=== PATIENT | female | born 1965 | race Caucasian/White ===

== ENCOUNTER 2023-05-04 09:53 | Outpatient (AMB) | payer OTHER, SELFPAY ==
--- NOTE | 2023-05-04 10:08 | MHC.OFFVIS ---
Intake Vital Signs 05/04/23 10:25 Height 5 ft 5 in Weight 262 lb BMI 43.6 BP 129/62 Blood Pressure Location Lt brachial Position Sitting Pulse 86 Pulse Source Pulse Oximeter Pulse Oximetry (%) 97 Oxygen Delivery Method Room Air Intake Visit Reasons: Left Total Knee Replacement Pain/confirmed Intake Note: Pain today 09/15 Collar Sewer Required: No Accompanied by: Self / Same As Patient Allergies erythromycin base [ERYTHROMYCIN BASE] Allergy (Severe, Verified 05/04/23 10:24) ANAPHYLAXIS metronidazole [METRONIDAZOLE] Allergy (Severe, Verified 05/04/23 10:24) ANAPHYLAXIS moxifloxacin [From AVELOX] Allergy (Severe, Verified 05/04/23 10:24) ANAPHYLAXIS Sulfa (Sulfonamide Antibiotics) [SULFA (SULFONAMIDE ANTIBIOTICS)] Allergy (Severe, Verified 05/04/23 10:24) ANAPHYLAXIS tetracycline [TETRACYCLINE] Allergy (Severe, Verified 05/04/23 10:24) ANAPHYLAXIS HPI Left Total Knee Replacement Pain/confirmed HPI Details Patient is a 57 years old female with history of left total knee replacement on 11/[address] Moyer at [facility] presents today for chronic anterior left knee pain. She reports stiffness, tightness and aching in her left anterior knee for over a year. There is no local tenderness medial or lateral joint lines. Patient has been unable to follow up with [facility] for this. Patient reports her post-operative rehabilitation included home rehab and then outpatient physical therapy and believes this went well. Denies any recent trauma, injury or falls. Pain affects her daily functioning, mobility, mood, sleep and quality of life. She rates her pain 4-5/10 on good days and 8-9/10 worst pain, with prolonged standing, especially during recent holiday preparations. Denies any fever, weight loss, burning, lower extremity numbness or tingling, back or groin pain, weakness, bladder or bowel dysfunction, or saddle anesthesia. Location Left anterior knee pain Duration Chronic pain >1 year Characteristics of symptom or complaint Aching, stiffness, tightness Aggravating or associated factors Movements, prolonged standing Relieving factors Sitting, diclofenac cream, Tylenol Treatment Home rehab s/p left TKA, then PT at [facility] Medical History (Updated 05/04/23 @ 22:59 by MONET Castillo) Diabetes mellitus type 2, controlled, without complications Moderate vulvar dysplasia Lichen sclerosus et atrophicus Osteoarthritis of thumbs, bilateral History of cervical cancer Long-term current use of insulin for diabetes mellitus Surgical History History of total left knee replacement (TKR) (Updated 05/04/23 @ 10:58 by Sarah Escobedo) Alcohol intake: current Alcohol intake frequency: holidays/special occasions only Patient Tobacco Use Status: Former Tobacco user Quit Date: 06/16/2019 Tobacco use type: Cigarette Cigarette Packs Per Day: 0.5 Substance Use Type: Caffiene Substance Use Type Other:: 1 cup daily Review of Systems Const All systems reviewed & are unremarkable except as noted in HPI and below Neuro Denies confusion Psych Denies confusion Physical Exam Vital Signs: Last Vital Signs Pulse 86 05/04/23 10:25 BP 129/62 05/04/23 10:25 Pulse Ox 97 05/04/23 10:25 Oxygen Delivery Method Room Air 05/04/23 10:25 BMI result Body Mass Index 43.6 General: Appears afebrile. Alert and oriented. Mood and affect appropriate. Follows and participates in conversation appropriately. Respiratory effort is unlabored. No cough. Able to transition from sit to stand unassisted. Ambulates with bilaterally normal heel strike and toe off. Const General: cooperative, healthy appearing, comfortable, no acute distress, alert and awake; No confusion Nutritional Appearance: obese morbidly obese Orientation/consciousness: No confusion Neuro General: No confusion Extrem General: Yes capillary refill normal, Yes no clubbing, cyanosis or edema and Yes no calf tenderness Left lower extremity: knee (Well healed incision, normal scarring) Details: normal to inspection, tenderness (global anterior knee) Location: not of the medial joint line and not of the lateral joint line and normal ROM; no swelling, no ecchymosis, no crepitus, no deformity and no unusual warmth Results Reviewed Results Reviewed: No imaging reports are available for review today. Assessment & Plan Assessment & Plan (1) Chronic knee pain after total replacement of left knee joint: Code(s): M25.562 - Pain in left knee; G89.29 - Other chronic pain; Z96.652 - Presence of left artificial knee joint (2) Left knee pain: Code(s): M25.562 - Pain in left knee Plan Left knee xray imaging to assess degree of degenerative changes and hardware status. Will consider [facility] [place] Orthopedic evaluation if any concern on imaging prior to any interventional treatments. Discussed treatments for chronic left knee pain s/p TKA in 2019 with femoral nerve Sprint PNS trial, genicular RFA or neuromodulation with Curonix PNS trial as well as DRG stimulation. Informational pamphlets were provided to patient. Tentatively plan for Left Diagnostic Femoral Nerve Block with local and fluoroscopy. Discussed the risks and benefits of the procedure with the patient in detail. All questions were answered. Follow up for xray results and sooner as needed. Orders: Orders XR knee LT 3V 05/04/23 M25.562 - Pain in left knee, Z96.652 - Presence of left artificial knee joint Coding Level of Care Code New Pt Level 4 (77246) Diagnoses Chronic knee pain after total replacement of left knee joint M25.562; G89.29; Z96.652 Left knee pain M25.562
[2023-05-04 10:25] VITALS: BP 129/62; PULSE 86; O2SAT 97; BMI 43.6
== END 2023-05-04 10:44 | disposition home or self-care (01) ==
PROVIDERS: PCP Internal Medicine; Referring Provider Internal Medicine; Visit Provider Nurse Practitioner Family
DX: M25.562 Pain in left knee (principal); G89.29 Other chronic pain; Z96.652 Presence of left artificial knee joint
CPT/HCPCS: 99204

== ENCOUNTER 2023-05-04 09:53 | Outpatient (REF) | payer OTHER, SELFPAY ==
--- NOTE | ~2023-05-04 | XR_ITS ---
EXAMINATION: XR KNEE, LEFT CLINICAL INFORMATION: Pain COMPARISON: None available. TECHNIQUE: Three views of the left knee. FINDINGS: Status post left knee arthroplasty. Orthopedic hardware is grossly intact. Slight enthesopathy at quadriceps tendon insertion site. Joint space alignment are maintained. Trace knee joint effusion. Soft tissues are unremarkable. XR/XR knee LT 3V IMPRESSION: 1. Status post left knee arthroplasty. Orthopedic hardware is grossly intact. 2. Slight enthesopathy at quadriceps tendon insertion site. 3. Trace knee joint effusion.
== END 2023-05-04 09:54 | disposition home or self-care (01) ==
LOC: HO.XRAY 09:53
PROVIDERS: PCP Internal Medicine; Referring Provider Internal Medicine; Visit Provider Nurse Practitioner Family
DX: Z96.652 Presence of left artificial knee joint (principal)
CPT/HCPCS: 73562

== ENCOUNTER 2025-01-12 11:07 | Emergency (ER) | payer OTHER, SELFPAY ==
--- NOTE | ~2025-01-12 | CT_ITS ---
EXAMINATION: CT CERVICAL SPINE WITHOUT CONTRAST CLINICAL INFORMATION: Status post fall. COMPARISON: None available. TECHNIQUE: Contiguous axial images through the cervical spine using 3 mm collimation with bone and soft tissue algorithm. Sagittal and coronal reformatted images acquired. DLP: [address] examination was performed using dose optimization techniques as appropriate, variously including the following: *Automated exposure control *Adjustment of mA and/or kV according to patient size (this includes techniques or standardized protocols for targeted exams where dose is matched to indication/reason for exam; i.e. extremities or head) *Use of iterative reconstruction technique FINDINGS: Craniocervical junction is intact with normal alignment between the occipital condyles and lateral masses of C1. Marginal osteophyte formation and subchondral cyst formation, decreased intervertebral disc height at C4-5 and C5-6 level. Anterior marginal osteophyte formation C3-4. Multilevel facet joint hypertrophy. Reduced right facets at C2-3. There is 1 mm anterolisthesis C3-4 likely degenerative. C1 is intact. C2 is intact. C3 is intact. C4 is intact. C5 is intact. Left subarticular posterior marginal osteophyte formation producing the AP diameter of the central spinal canal. C6 is intact. C7 is intact. No prevertebral compartment hematoma. Central spinal canal stenosis on a degenerative basis/multifactorial basis at C5-6, C6-7 and to a lesser extent C4-5. Calcified plaques in the carotic arteries pronounced on the right side. The included tympanic cavities and mastoid cells are aerated. CT/CT cervical spine wo IV con IMPRESSION: Multilevel cervical spondylosis C3 C7 resulting in severe central spinal canal stenosis at C5-6, C6-7 and to a lesser extent C4-5 likely compressing the spinal cord. No acute fracture or trauma-related listhesis. Fleischner guidelines were followed. Electronically signed by: Jarett Minaya MD 01/12/2025 01:49 PM EDT
--- NOTE | ~2025-01-12 | CT_ITS ---
EXAMINATION: CT HEAD AND FACIAL BONES WITHOUT CONTRAST CLINICAL INFORMATION: Fall with head strike, struck face and nose. COMPARISON: None TECHNIQUE: Contiguous axial imaging was performed from the skull base to vertex, as well as the maxillofacial bones/mandible without intravenous administration of contrast. Multiplanar reformatted imaging was constructed from the axial data set. This CT examination was performed using dose optimization techniques as appropriate, variously including the following: *Automated exposure control *Adjustment of mA and/or kV according to patient size (this includes techniques or standardized protocols for targeted exams where dose is matched to indication/reason for exam; i.e. extremities or head) *Use of iterative reconstruction technique CT HEAD: There is no evidence of intracranial hemorrhage or extra-axial fluid collection. There is no mass effect, or edema. No CT evidence of acute territorial infarct. Ventricles, sulci, and cisterns are normal in size and configuration for patient age. No hydrocephalus. No midline shift. Negative hyperdense MCA sign. Negative insular ribbon sign. No significant white matter abnormalities. Normal pituitary. Globes and orbital contents demonstrate bilateral lens replacements. They are otherwise normal. No extracranial soft tissue abnormalities. The calvarium and skull base are intact without fracture. CT MAXILLOFACIAL BONES: The mandible is intact without fracture. The TM joints are normally oriented. No definitive nasal bone fractures. The nasal process, maxilla, orbits, zygomatic arches, pterygoid plates, and sphenoid bone are intact without fracture. No significant nasal septal deviation. Paranasal sinuses are normally pneumatized throughout. No significant paranasal sinus disease. No paranasal sinus fractures. The mastoids and tympanic cavities are normally aerated. Imaged maxillofacial/neck soft tissues appear normal. CT/CT facial bones wo IV con IMPRESSION: 1. No definitive nasal or maxillofacial fractures. The mandible is intact. 2. No intracranial hemorrhage or mass effect. No calvarial fracture. Electronically signed by: Ulysses Khan MD 01/12/2025 01:47 PM EDT
[2025-01-12 11:21] VITALS: BP 132/84; BP 137/77; PULSE 64; PULSE 86; RESP 17; TEMP 36.6; O2SAT 96; BMI 47.9
[2025-01-12 11:25] VITALS: BP 137/77; PULSE 64; RESP 17; TEMP 36.6; O2SAT 96
--- NOTE | 2025-01-12 11:57 | ED.FALL ---
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 She reports losing her balance while walking through the parking lot at work, causing her to fall forward and strike her face on the asphalt. She denies LOC. She is not on anticoagulation. She was unable to stand after the fall due to left knee replacement and thus called EMS who then transported her to the ED. Endorses abrasions to right wrist, nose, and right knee. Denies any preceding symptoms of chest pain, shortness of breath, palpitations. Denies headache, vision changes, dizziness, nausea or vomiting, neck or back pain, numbness/tingling/weakness of the extremities, nosebleed. Related Data Home Medications ?Medication ?Instructions ?Recorded ?Confirmed acetaminophen 650 mg 650 mg PO Q8H PRN pain 05/04/23 tablet,extended release bromfenac 0.07 % eye drops 1 drp ophthalmic (eye) DAILY 05/04/23 (Prolensa) diclofenac sodium 1 % topical gel 1 g topical BID PRN pain 05/04/23 empagliflozin 10 mg tablet 10 mg PO DAILY 05/04/23 (Jardiance) glyburide 5 mg tablet 10 mg PO BID 05/04/23 insulin glargine 100 unit/mL (3 90 - 92 unit subcut DAILY 05/04/23 mL) subcutaneous pen (Lantus Solostar U-100 Insulin) lisinopril 30 mg tablet 30 mg PO DAILY 05/04/23 loteprednol etabonate 0.38 % eye drp ophthalmic (eye) 05/04/23 gel drops (Lotemax SM) magnesium oxide 400 mg (241.3 mg 400 mg PO DAILY 05/04/23 magnesium) tablet moxifloxacin 0.5 % eye drops drp ophthalmic (eye) 05/04/23 tobramycin 0.3 % eye drops drp ophthalmic (eye) 05/04/23 Allergies Allergy/AdvReac Type Severity Reaction Status Date / Time erythromycin base Allergy Severe ANAPHYLAXIS Verified 01/12/25 11:22 (ERYTHROMYCIN BASE) metronidazole (METRONIDAZOLE) Allergy Severe ANAPHYLAXIS Verified 01/12/25 11:22 moxifloxacin (From AVELOX) Allergy Severe ANAPHYLAXIS Verified 01/12/25 11:22 Sulfa (Sulfonamide Allergy Severe ANAPHYLAXIS Verified 01/12/25 11:22 Antibiotics) (SULFA (SULFONAMIDE ANTIBIOTICS)) tetracycline (TETRACYCLINE) Allergy Severe ANAPHYLAXIS Verified 01/12/25 11:22 Review of Systems Review of Systems: Yes all other systems are reviewed and are negative [facility] Past Medical History Attestation statement: The following information was validated with the patient. Source: old records reviewed and nursing notes reviewed Medical History Diabetes mellitus type 2, controlled, without complications Moderate vulvar dysplasia Lichen sclerosus et atrophicus Osteoarthritis of thumbs, bilateral History of cervical cancer Long-term current use of insulin for diabetes mellitus Surgical History History of total left knee replacement (TKR) Social History Social History Alcohol intake: current Alcohol intake frequency: holidays/special occasions only Patient Tobacco Use Status: Former Tobacco user Tobacco use type: Cigarette Cigarette Packs Per Day: 0.5 Substance Use Type: Caffiene Physical Exam Vital Signs: Vital Signs: Last Vital Signs Temp 97.3 F 01/12/25 15:42 Pulse 79 01/12/25 15:42 Resp 14 01/12/25 15:42 BP 140/58 H 01/12/25 15:42 Pulse Ox 96 01/12/25 15:42 O2 Del Method Room Air 01/12/25 15:42 BMI result Body Mass Index 47.9 vitals signs stable General: Well appearing, in no acute distress. Skin: Warm, dry, No rashes or lesions. abrasion on bridge of nose, right wrist and right knee Head: Normocephalic, atraumatic. EENT: Hearing is intact b/l. Conjunctiva clear. Sclera is anicteric. PERRLA. EOM intact. Moist mucous membranes.? No septal hematoma. Neck: FROM. No midline C-spine tenderness Cardiac: Chest wall symmetric. RRR Lungs: Normal respiratory effort without accessory muscle use. CTA bilaterally. Back: No midline spinous or paraspinal tenderness. No step off deformity. Ext: Upper and lower extremities atraumatic, without tenderness, deformity, swelling or erythema Neuro: AOx3. Normal speech.Strength 5/5 intact throughout. No saddle anesthesia. Sensation intact to light touch. Psych: Appropriate mood and affect. Responds appropriately to questions. Course Course Course Narrative: 1508 -- CT head without bleed. CT facial bones without nasal or facial fracture. Mandible is intact. On CT cervical spine, radiologist noted multilevel cervical spondylosis C3 through C7 resulting in severe central spinal canal stenosis at C5/6 and C6/7 and to a lesser extent C4/5, likely compressing the spinal cord. > abrasions to nasal bridge cleansed with saline and iodine thoroughly. Repaired with Steri-Strips. No active bleeding. > I discussed these results with patient. She has no neuro symptoms at all. She is neurovascularly intact to bilateral upper extremities. She has full ROM intact to C-spine. There is no midline spinous tenderness or step-off. I do not have concern for acute spinal cord compression. I did discuss this with my attending Dr. Gaitan who has also evaluated patient at bedside. He agrees that clinically, there is no concern for spinal cord compression. I did advise patient to follow up with her outpatient providers. She verbalizes understanding. Patient has remained stable throughout ED visit today. Discussed worrisome signs and symptoms and when to return to the ED. All questions answered at this time. Patient is agreeable with disposition and stable for discharge. Medications Administered Discontinued Medications Generic Name Dose Route Start Last Admin Trade Name Freq PRN Reason Stop Dose Admin Acetaminophen 975 mg 01/12/25 12:25 01/12/25 12:32 Acetaminophen 325 Mg Tablet PO 01/12/25 12:26 975 mg ONCE ONE Administration Medical Decision Making Medical Decision Making 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 Vital signs stable. She is well-appearing in no acute distress. There is a small abrasion noted to the bridge of her nose. No active bleeding or bleeding from the nares. No septal hematoma or deviation. Dentition intact. Differential diagnosis includes facial contusion, facial fracture, abrasion, laceration, concussion, closed head injury, intracranial bleed, cervical sprain/strain, cervical fracture Plan for imaging, Tylenol and re-evaluation. Differential Diagnosis Differential Diagnoses: The differential diagnosis associated with the presentation includes as above. Admission/Observation not indicated. Independent Interpretation I performed an independent interpretation of an: CT Scan Interpretation: CT head/brain without bleed CT cervical spine without acute fracture CT facial bones without fracture Radiology Impression Discussion of test interpretation with radiology: I have reviewed the radiologist's reading. Radiologist Impression: Procedure(s): CT facial bones wo IV con Accession Number(s): [id number] cc: Jacob Lo III, MD; Juliana Garcia~ Report Number: [id number]: Total DLP = 276.00 mGy-cm EXAMINATION: CT HEAD AND FACIAL BONES WITHOUT CONTRAST CLINICAL INFORMATION: Fall with head strike, struck face and nose. COMPARISON: None TECHNIQUE: Contiguous axial imaging was performed from the skull base to vertex, as well as the maxillofacial bones/mandible without intravenous administration of contrast. Multiplanar reformatted imaging was constructed from the axial data set. This CT examination was performed using dose optimization techniques as appropriate, variously including the following: *Automated exposure control *Adjustment of mA and/or kV according to patient size (this includes techniques or standardized protocols for targeted exams where dose is matched to indication/reason for exam; i.e. extremities or head) *Use of iterative reconstruction technique CT HEAD: There is no evidence of intracranial hemorrhage or extra-axial fluid collection. There is no mass effect, or edema. No CT evidence of acute territorial infarct. Ventricles, sulci, and cisterns are normal in size and configuration for patient age. No hydrocephalus. No midline shift. Negative hyperdense MCA sign. Negative insular ribbon sign. No significant white matter abnormalities. Normal pituitary. Globes and orbital contents demonstrate bilateral lens replacements. They are otherwise normal. No extracranial soft tissue abnormalities. The calvarium and skull base are intact without fracture. CT MAXILLOFACIAL BONES: The mandible is intact without fracture. The TM joints are normally oriented. No definitive nasal bone fractures. The nasal process, maxilla, orbits, zygomatic arches, pterygoid plates, and sphenoid bone are intact without fracture. No significant nasal septal deviation. Paranasal sinuses are normally pneumatized throughout. No significant paranasal sinus disease. No paranasal sinus fractures. The mastoids and tympanic cavities are normally aerated. Imaged maxillofacial/neck soft tissues appear normal. CT/CT facial bones wo IV con IMPRESSION: 1. No definitive nasal or maxillofacial fractures. The mandible is intact. 2. No intracranial hemorrhage or mass effect. No calvarial fracture. Electronically signed by: Ulysses Khan MD 01/12/2025 01:47 PM EDT RP Date of Service: 01/12/25 Procedure(s): CT head/brain wo IV con Accession Number(s): [id number] cc: Jacob Lo III, MD; Juliana Garcia~ Report Number: [id number]: Total DLP = 627.00 mGy-cm EXAMINATION: CT HEAD AND FACIAL BONES WITHOUT CONTRAST CLINICAL INFORMATION: Fall with head strike, struck face and nose. COMPARISON: None TECHNIQUE: Contiguous axial imaging was performed from the skull base to vertex, as well as the maxillofacial bones/mandible without intravenous administration of contrast. Multiplanar reformatted imaging was constructed from the axial data set. This CT examination was performed using dose optimization techniques as appropriate, variously including the following: *Automated exposure control *Adjustment of mA and/or kV according to patient size (this includes techniques or standardized protocols for targeted exams where dose is matched to indication/reason for exam; i.e. extremities or head) *Use of iterative reconstruction technique CT HEAD: There is no evidence of intracranial hemorrhage or extra-axial fluid collection. There is no mass effect, or edema. No CT evidence of acute territorial infarct. Ventricles, sulci, and cisterns are normal in size and configuration for patient age. No hydrocephalus. No midline shift. Negative hyperdense MCA sign. Negative insular ribbon sign. No significant white matter abnormalities. Normal pituitary. Globes and orbital contents demonstrate bilateral lens replacements. They are otherwise normal. No extracranial soft tissue abnormalities. The calvarium and skull base are intact without fracture. CT MAXILLOFACIAL BONES: The mandible is intact without fracture. The TM joints are normally oriented. No definitive nasal bone fractures. The nasal process, maxilla, orbits, zygomatic arches, pterygoid plates, and sphenoid bone are intact without fracture. No significant nasal septal deviation. Paranasal sinuses are normally pneumatized throughout. No significant paranasal sinus disease. No paranasal sinus fractures. The mastoids and tympanic cavities are normally aerated. Imaged maxillofacial/neck soft tissues appear normal. CT/CT head/brain wo IV con IMPRESSION: 1. No definitive nasal or maxillofacial fractures. The mandible is intact. 2. No intracranial hemorrhage or mass effect. No calvarial fracture. Electronically signed by: Ulysses Khan MD 01/12/2025 01:47 PM EDT RP Date of Service: 01/12/25 Procedure(s): CT cervical spine wo IV con Accession Number(s): [id number] cc: Jacob Lo III, MD; Juliana Garcia~ Report Number: [id number]: Total DLP = 563.00 mGy-cm EXAMINATION: CT CERVICAL SPINE WITHOUT CONTRAST CLINICAL INFORMATION: Status post fall. COMPARISON: None available. TECHNIQUE: Contiguous axial images through the cervical spine using 3 mm collimation with bone and soft tissue algorithm. Sagittal and coronal reformatted images acquired. DLP: [address] examination was performed using dose optimization techniques as appropriate, variously including the following: *Automated exposure control *Adjustment of mA and/or kV according to patient size (this includes techniques or standardized protocols for targeted exams where dose is matched to indication/reason for exam; i.e. extremities or head) *Use of iterative reconstruction technique FINDINGS: Craniocervical junction is intact with normal alignment between the occipital condyles and lateral masses of C1. Marginal osteophyte formation and subchondral cyst formation, decreased intervertebral disc height at C4-5 and C5-6 level. Anterior marginal osteophyte formation C3-4. Multilevel facet joint hypertrophy. Reduced right facets at C2-3. There is 1 mm anterolisthesis C3-4 likely degenerative. C1 is intact. C2 is intact. C3 is intact. C4 is intact. C5 is intact. Left subarticular posterior marginal osteophyte formation producing the AP diameter of the central spinal canal. C6 is intact. C7 is intact. No prevertebral compartment hematoma. Central spinal canal stenosis on a degenerative basis/multifactorial basis at C5-6, C6-7 and to a lesser extent C4-5. Calcified plaques in the carotic arteries pronounced on the right side. The included tympanic cavities and mastoid cells are aerated. CT/CT cervical spine wo IV con IMPRESSION: Multilevel cervical spondylosis C3 C7 resulting in severe central spinal canal stenosis at C5-6, C6-7 and to a lesser extent C4-5 likely compressing the spinal cord. No acute fracture or trauma-related listhesis. Fleischner guidelines were followed. Electronically signed by: Jarett Minaya MD 01/12/2025 01:49 PM EDT Independent Historian Clinical information obtained from an independent historian. History obtained from or confirmed by: EMS External Record Review External record reviewed: Inpatient record Prescription Management I considered prescription management with: Pain Medication Social Determinants Patient?s care significantly limited by Social Determinants of Health including: Other Social Determinant of Health Critical Care Time Critical Care Time Critical Care Time: No Discharge Plan Discharge Clinical Impression: Fall Patient Disposition: Home, Self-Care Instructions: Fall Prevention (ED) Additional Instructions: You were evaluated at our facility following a trip and fall this morning. The CT scan of your head and face does not demonstrate any acute fracture or intracranial bleed. The CT scan of your neck does not demonstrate acute fracture however, as discussed, it does show severe spinal stenosis within the neck. Your exam is reassuring in the ED not have any neurologic deficits. I do encourage you to follow up with your outpatient providers regarding this finding as you may warrant further imaging outpatient. The abrasion to your nose was covered with steri strips - these will fall off on their own, do no pick at these. You may take tylenol/ motrin at home for any pain/ discomfort. Return with any new or worsening symptoms. In the case of an emergency call 911. CT cervical spine wo IV con IMPRESSION: Multilevel cervical spondylosis C3 C7 resulting in severe central spinal canal stenosis at C5-6, C6-7 and to a lesser extent C4-5 likely compressing the spinal cord. No acute fracture or trauma-related listhesis. Prescriptions: No Action tobramycin 0.3 % drops ophthalmic (eye) moxifloxacin 0.5 % drops ophthalmic (eye) diclofenac sodium 1 % gel 1 g topical BID PRN (Reason: pain) insulin glargine [Lantus Solostar U-100 Insulin] 100 unit/mL (3 mL) insulin pen 90 - 92 unit subcut DAILY magnesium oxide 400 mg (241.3 mg magnesium) tablet 400 mg PO DAILY glyburide 5 mg tablet 10 mg PO BID Lotemax SM 0.38 % drops,gel ophthalmic (eye) Prolensa 0.07 % drops 1 drp ophthalmic (eye) DAILY lisinopril 30 mg tablet 30 mg PO DAILY acetaminophen 650 mg tablet extended release 650 mg PO Q8H PRN (Reason: pain) Jardiance 10 mg tablet 10 mg PO DAILY Referrals: Jacob Lo III, MD [Primary Care Provider, Medical] Interventions: ED Discharge Assessment Last Done: 01/12/25 15:42 Discharge Date/Time: 01/12/25 15:43 Print Language: Armenian
--- OUTSIDE RECORDS SUMMARY | 2025-01-12 12:08 | XMS_ITS ---
Author Name [facility] Organization Unknown Care Team Organization Name Specialty Phone Email Start Date End Da te [facility] SIDRA CRUZ Primary Care 04/15/2022 4
--- OUTSIDE RECORDS SUMMARY | 2025-01-12 12:08 | XMS_ITS | Clinical Summary ---
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 Name Role Phone Jacob Lo MD Primary Care Provider [phone] Allergies Active Allergy Reactions Criticality Noted Date Comments Aspirin Nausea And Vomiting 06/07/2007 Erythromycin Anaphylaxis High 06/07/2007 Metronidazole Anaphylaxis High 06/07/2007 Metronidazole Hcl 11/22/2010 Moxifloxacin 09/08/2024 Moxifloxacin Hcl Medium 06/04/2009 Other Reaction(s): Hives/Urticaria Sulfa (Sulfonamide Antibiotics) 09/08/2024 Sulfacetamide Sodium Anaphylaxis High 06/07/2007 Sulfamethoxazole-Trimeth oprim Anaphylaxis High 06/07/2007 Tetracycline Anaphylaxis High 06/07/2007 Medications clobetasoL (TEMOVATE) 0.05 % cream Use 1 gram to affected area nightly for four weeks 02/15/20 24 025 Active diclofenac (VOLTAREN) 1 % topical gel Apply 1 g topically 2 times daily as needed (pain). 01/12/20 24 Active medical supply, miscellaneous (MISCELLANEOUS MEDICAL SUPPLY MISC) Insulin Pen Needle (B-D ULTRAFINE III SHORT PEN) 31G X 8 MM Misc Use to inject insulin at bedtime 11/27/19 24 Active lancets (OneTouch Delica Plus Lancet) 30 gauge Apply 1 Each topically 2 times daily. 02/24/20 23 Active OneTouch Ultra Test test strip Use to test blood sugar 2 times daily 08/01/19 Active blood-glucose meter kit Use to test blood sugar 2 times daily 04/12/20 Active multivitamin (MULTIPLE VITAMINS ORAL) Take 1 Tab by mouth daily. Active ascorbic acid (VITAMIN C) 1,000 mg tablet Take 1,000 mg by mouth daily. Active lisinopriL (PRINIVIL,ZESTRI L) 30 mg tablet Take 1 tablet (30 mg total) by mouth 1 (one) time each day. 90 tablet 1 05/24/20 24 Active magnesium oxide (MAG-OX) 400 mg (241.3 elemental magnesium) tablet Take 1 tablet (400 mg total) by mouth 1 (one) time each day. 90 tablet 2 05/24/20 24 Active glyBURIDE (DIABETA) 5 mg tablet Take 1 tablet (5 mg total) by mouth 2 (two) times a day with meals. 180 tablet 2 07/18/19 25 Active Jardiance 25 mg tablet TAKE ONE TABLET BY MOUTH EVERY DAY 90 tablet 1 08/17/19 25 Active fluoride, sodium, 1.1 % paste APPLY A THIN RIBBON TO A TOOTH BRUSH AT BEDTIME 09/03/19 25 Active aspirin 162.5 mg capsule,extended release 24hr Take 325 mg by mouth. 11/08/19 20 Active mometasone (ELOCON) 0.1 % cream Apply to affected area 3x/wk nightly 45 g 2 09/09/19 25 Active nystatin-triamci nolone (MYCOLOG II) ointment 3-4x/day to affected area 30 g 5 09/09/19 25 Active insulin glargine (Lantus Solostar U-100 Insulin) 100 unit/mL (3 mL) injection pen INJECT 90 TO 92 UNITS INTO THE SKIN ONCE A DAY Strength: 100 UNIT/ML 90 mL 2 09/28/19 25 Active acetaminophen (TYLENOL 8 HOUR) 650 mg 8 hr tablet Take 1 tablet (650 mg total) by mouth every 8 (eight) hours if needed for moderate pain. 270 tablet 1 10/28/19 25 Active fluconazole (DIFLUCAN) 150 mg tablet Take 1 tablet (150 mg total) by mouth 1 (one) time each day. 7 tablet 11/16/19 25 Active atorvastatin (LIPITOR) 10 mg tablet TAKE ONE TABLET BY MOUTH EVERY DAY 90 tablet 1 12/27/19 25 Active fluticasone propionate (FLONASE) 50 mcg/actuation nasal spray 1 [place] by Nasal route daily. 11/27/19 24 025 Discontinued(T herapy completed) atorvastatin (LIPITOR) 10 mg tablet Take 1 tablet (10 mg total) by mouth 1 (one) time each day. 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 Continue every AM nystatin and add oral fluconazole. Impaired fasting glucose 09/08/2024 Hypertriglyceridemia 09/08/2024 Controlled type 2 diabetes aly arreguin without complication, with long-term current use of insulin ([facility] V24, [facility] V28) 04/20/2024 Morbid obesity with BMI of 4 0.0-44.9, adult ([facility] V24, [facility] V28) 04/20/2024 Osteoarthritis of thumbs, bilateral 06/05/2017 Essential hypertension 03/09/2017 Lichen sclerosus et atrophicus 04/14/2012 Overview (04/20/2024): Vulvar biopsy Assessment & Plan (11/15/2024 4:24 PM EDT): Reviewed findings with patient. Moderate control. I reviewed the importance of regular maintenance topical steroid use to prevent symptoms, further scarring, and squamous cell cancer of the vulva. I also explained the importance of regular follow up to ensure she has no evidence of precancerous or cancerous changes and that she is not having side effects from her medication. I reviewed areas of application and amount of medication to use. Use mometasone MWF nights with coconut oil between, especially toward the introitus. She agreed. Moderate vulvar dysplasia, histologically confir med 12/03/2011 Overview (04/20/2024): Excised completely 03/2012. Also, lichen sclerosus. Lower extremity edema 11/25/2011 Obesity, morbid ([facility] V24, [facility] V28) 08/02 Overview (04/20/2024): BMI 42.7 on 06/16/13. 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 (Primary Dx) 12/05/2024 4:42 PM EDT - 12/05/2024 11:59 PM EDT Hospital Encounter [facility] MRI [address] [place] [id number] Left wrist pain Discharge Disposition: Home or Self Care 11/24/2024 4:30 PM EDT Office Visit Adult Medicine [address] [phone] Jacob Lo MD Uncontrolled type 2 diabetes mellitus with hyperglycemia ([facility] V24, [facility] V28) (Primary Dx); Hypercholesterolemia; Essential hypertension; Lower extremity edema 11/15/2024 4:00 PM EDT Consult Obstetrics and Gynecology [address] [phone] Olivia Donohue MD Lichen sclerosus et atrophicus (Primary Dx); Cutaneous candidiasis 11/04/2024 8:30 AM EDT Office Visit Obstetrics and Gynecology [address] [phone] Kyrstal Robles, [facility] Women's annual routine gynecological examination (Primary Dx); History of cervical cancer; Lichen sclerosus et atrophicus from Last 3 Months Immunizations Name Administration Dates Next Due Influenza Quadravalent, MDCK , 0.5ml, preservative free (Flucelvax) 6mo and older 03/29/2020,03/20/2019 Influenza Quadravalent, MDCK , 0.5ml, with preservative (Flucelvax) 6mo and older 03/09/2017 Influenza trivalent, 0.5mL, preservative free (Fluarix; FluLaval; Fluzone) ages 6mo and older (Afluria) 3 years and older 04/03/2018 Influenza trivalent, with pr eservative (Fluzone; Afluria) 6mo and older 04/03/2015,03/09/2014,03/05/2011 Influenza, Unspecified 04/06/2022 [employer] SARS-CoV-2 COVID-19, mRNA, LNP-S, preservative free 01/19/2021,12/29/2020 Pneumococcal polysaccharide 23 valent (Pneumovax 23) 2yo and older 02/09/2014 Tdap Tetanus diptheria acell ular pertussis (Boostrix; Adacel) 7yo and older 09/21/2014 Zoster recombinant (Shingrix ) 19yo and older 07/21/2020,05/15/2020 Surgical History Surgery Date Site/Laterality Comments OTHER SURGICAL HISTORY - age 22 PROCEDURE: HISTORICAL TOTAL HYSTERECTOMY W/O BSO; COMMENT: cervical cancer APPENDECTOMY PROCEDURE: HISTORICAL APPENDECTOMY OTHER SURGICAL HISTORY 03/2012 PROCEDURE: CA BIOPSY VULVA/PERINEUM 1 LESION SPX; COMMENT: KIANA 2 excised COLONOSCOPY 09/2016 PROCEDURE: HISTORICAL COLONOSCOPY; COMMENT: negative BREAST REDUCTION 07/2005 Bilateral PROCEDURE: CA BREAST REDUCTION; COMMENT: 12/11 COLONOSCOPY 03/19/2021 PROCEDURE: HISTORICAL COLONOSCOPY; COMMENT: random biopsy pending. rectal polyp. ESOPHAGOGASTRODUODENOSCOPY 03/19/2021 PROCEDURE: CA EGD TRANSORAL BIOPSY SINGLE/MULTIPLE; COMMENT: biopsy pending Medical History Medical History Date Comments Type II or unspecified type diabetes mellitus with unspecified complication, not stated as uncontrolled DX:Type II or unspecified t ype diabetes mellitus with unspecified complication, not stated as uncontrolled Ankle fracture, left - DX:Ankle fr acture, left; COMMENT: casted Family History Medical History Relation Name Comments Arthritis Father Cataracts Father Diabetes Father Hypertension Father Other cancer Maternal Grandfather Glaucoma Maternal Grandmother Arthritis Mother ? RA Diabetes Mother Hypertension Mother Diabetes Paternal Grandfather Diabetes Paternal Grandmother Arthritis Sister Blindness Neg Hx Breast cancer Neg Hx Colon cancer Neg Hx Macular degeneration Neg Hx Ovarian cancer Neg Hx Strabismus Neg Hx Relation Name Status Comments Father Maternal Grandfather Maternal Grandmother Mother Paternal Grandfather Paternal Grandmother Sister Social History Tobacco Use Types Packs/Day Years Used Date Smoking Tobacco: Former Cigarettes 0.5 38 0 06/08/1981 - 06/16/2019 Smokeless Tobacco: Never Alcohol Use Standard Drinks/Week Comments Yes 0 (1 standard drink = 0.6 oz pur e alcohol) occ Housing Instability Answer Date Recorde d Are you worried that in the next 2 months you may not have stable housing? Patient declined 07/12/2024 Food Access & Nutrition Answer Date Rec orded Do you have access to a vari ety of food including fruits and vegetables? Patient declined 07/12/2024 Access to Healthcare Answer Date Record ed Within the last 3 months, ho w many times did you visit the emergency department for your medical care? 0 07/12/2024 Health Literacy Answer Date Recorded How often do you need to hav e someone help you when you read instructions, pamphlets, or other written material from your doctor or pharmacy? Patient declined 07/12/2024 Caregiver: How often do you need to have someone help you when you read instructions, pamphlets, or other written material from your doctor or pharmacy? Not on file 025 Financial Risk Answer Date Recorded How hard is it for you to pa y for the very basics like food, housing, medical care, and air conditioning / heating? Patient declined 07/12/2024 Transportation Answer Date Recorded Has the lack of transportati on kept you from meetings, work, or from getting things needed for daily living? Patient declined 07/12/2024 Has the lack of transportati on kept you from medical appointments or from getting medications? Patient declined 07/12/2024 Social Isolation Answer Date Recorded How often do you feel lonely or isolated from those around you? Patient declined 07/12/2024 Food Risk Answer Date Recorded Within the past 12 months we worried whether our food would run out before we got money to buy more. Patient declined 025 Within the past 12 months th e food we bought just didn't last and we didn't have money to get more. Patient declined 09/2024 Dependent Care Answer Date Recorded Do you need help finding or paying for care for your loved ones. For example, director of early childhood education or elderly care for an older adult? Patient declined 07/12/2024 Education Answer Date Recorded Do you think completing more education or training, like finishing a GED, going to college, or learning a trade, would be helpful for you? Patient declined 07/12/2024 Employment and Income Answer Date Recor ded During the last four weeks, have you been actively looking for work? Patient declined 07/12/2024 Living Situation Answer Date Recorded What is your living situation? 0 07/12/2024 Comments No Sex and Gender Information Value Date Recorded Sex Assigned at Not on file Legal Sex Female 4:27 AM EST Gender Identity Not on file Sexual Orientation Not on file Obstetrics History Para Term AB IAB SAB Ectopic Multiple Livin g Live Births 6 2 1 1 4 1 3 0 2 2 Date Outcome GA Total Labor Labor/2nd/3rd Weight Sex Type Anes PTL Jeni A1 A5 Name Clin F Living IAB SAB SAB Term Living SAB Last Filed Vital Signs Vital Sign Reading Time Taken Comments Blood Pressure 130/76 11/24/2024 4:37 PM EDT Pulse 89 11/24/2024 4:13 PM EDT Temperature 36.4 C (97.5 F) 11/24/2024 4:04 PM EDT Respiratory Rate 16 11/24/2024 4:04 PM EDT Oxygen Saturation 95% 11/24/2024 4:04 PM EDT Inhaled Oxygen Concentration - - Weight 125 kg (275 lb) 12/20/2024 4:06 PM EDT Height 166.4 cm (5' 5.5 ) 12/20/2024 4:06 PM EDT Body Mass Index 45.07 12/20/2024 4:06 PM EDT Plan of Treatment Upcoming Encounters Date Type Department Care Team (Late st Contact Info) Description 02/16/2025 8:30 AM EDT Office Visit Obstetrics and Gynecology [address] [place] [phone] Marya Medina, ABAD [address] [place], [place] 06/19/2025 4:30 PM EST Office Visit Adult Medicine [address] [phone] Jacob Lo MD [address] [place] [address] Health Maintenance Due Date Last Done Comments Diabetes: Annual Foot Exam 10/05/1975 Diabetes: Annual Retina Eye Exam 10/05/1975 Hepatitis B Vaccines (1 of 3 - 19+ 3-dose series) 1984 Pneumococcal Vaccine: 50+ Years (2 of 2 - PCV) 02/09/2015 02/09/2014 HIV Screening 05/17/2022 COVID-19 Vaccine ( season) 2024 07/19/2021, 01/19/2021, 12/29/2020 DTaP,Tdap,and Td Vaccines (2 - Td or Tdap) 09/21/2024 09/21/2014 Influenza Vaccine (#1) 2025 , 03/15/2023, 04/06/2022, Additional history exists Breast Cancer Screening 04/06/2025 04/06/20 23, 03/31/2022, 03/25/2021, Additional history exists Diabetes: Blood Sugar Control Test (HGBA1C) 05/07/2025 11/04/2024, 05/18/2024, 10/05/2023, Additional history exists Social Influencers of Health Screening 07/12/2025 07/12/2024 Diabetes: Annual Urine Albumin-Creatinine Ratio (uACR) 11/04/2025 11/04/2024, 05/18/2024, 10/05/2023 Diabetes: Annual GFR (Glomerular Filtration Rate) 11/04/2025 11/04/2024, 05/18/2024, 12/17/2022 Hypertension/CHF/CAD Annual BMP Blood Test 11/04/2025 11/04/2024, 05/18/2024, 12/17/2022 Cervical Cancer Screening: HPV 11/04/2029 11/04/2024, 04/12/2018 Cholesterol Screening (Lipid Panel) 11/04/2029 11/04/2024, 05/18/2024, 12/17/2022 Colorectal Cancer Screening: Colonoscopy 03/19/2031 03/19/2021 RSV Immunization Adult Patients (1 - 1-dose 75+ series) 2040 Hepatitis C Screening Completed 03/09/2014 Zoster Vaccines Completed 07/21/2020, 05/15/2020 Depression Screening Completed 08/11/2024 HIB Vaccines Aged Out No longer eligi ble based on patient's age to complete this topic HPV Vaccines Aged Out No longer eligi ble based on patient's age to complete this topic Hepatitis A Vaccines Aged Out No long er eligible based on patient's age to complete this topic IPV Vaccines Aged Out No longer eligi ble based on patient's age to complete this topic MMR Vaccines Aged Out No longer eligi ble based on patient's age to complete this topic Meningococcal ACWY Vaccine Aged Out N o longer eligible based on patient's age to complete this topic Meningococcal B Vaccine Aged Out No l onger eligible based on patient's age to complete this topic RSV Immunization Patients Under 20 months Aged Out No longer eligible based on patient's age to complete this topic Varicella Vaccines Aged Out No longer eligible based on patient's age to complete this topic Goals Goal Patient Goal Type Associated Problems Recent Progress Patient-Stated? Author I want to take care of my swollen leg General Yes Lora Rose, OTR/L Note: STG's to be met with 4-6 visits 1: Patient will be able to demo at least 3 exercises to increase lymph flow 2: Patient will have appropriate compression in place ( able to tolerate and garment is effective ) 3 Patient will present with decreased size of both LE's 4 : patient will be independent in lymph edema management and there will be no increase in symptoms when not seen by this therapist for at least 1 week Procedures Procedure Name Priority Date/Time Associated Diagnosis Comments CA ARTHROCENTESIS/ASPIRA TION/INJECTION INTERMEDIATE JOINT/BURSA WO U/S GUID Routine 12/20/2024 4:00 PM EDT 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 MR WRIST WO CONTRAST LEFT Routine 12/05/2024 5:59 PM EDT Left wrist pain CULTURE GENITAL Routine 11/15/2024 4:01 PM EDT Lichen sclerosus et atrophicus MICROALBUMIN CREATININE URINE RATIO Routine 11/04/2024 9:28 AM EDT Uncontrolled type 2 diabetes mellitus with hyperglycemia (CMS/HCC V24, CMS/HCC V28) HEMOGLOBIN A1C Routine 11/04/2024 9:18 AM EDT Uncontrolled type 2 diabetes mellitus with hyperglycemia (CMS/HCC V24, CMS/HCC V28) LIPID PANEL WITH REFLEX TO DIRECT LDL Routine 11/04/2024 9:18 AM EDT Hypercholesterolemia COMPREHENSIVE METABOLIC PANEL Routine 11/04/2024 9:18 AM EDT Essential hypertension Uncontrolled type 2 diabetes mellitus with hyperglycemia (CMS/HCC V24, CMS/HCC V28) Encounter for long-term (current) use of medications PAP SMEAR Routine 11/04/2024 9:00 AM EDT History of cervical cancer HPV WITH REFLEX GENOTYPE Routine 11/04/2024 9:00 AM EDT History of cervical cancer SCREENING MAMMOGRAPHY BI 2-VIEW BREAST INC CAD Routine 04/06/2023 6:47 PM EDT Encounter for screening mammogram for malignant neoplasm of breast COLONOSCOPY Routine 03/19/2021 HEPATITIS C SCREENING Routine 03/09/2014 from Last 3 Months or Most Recently Relevant to Health Maintenance Results * CA ARTHROCENTESIS/ASPIRATION/INJECTION INTERMEDIATE JOINT/BURSA WO U/S GUID (12/20/2024 4:00 PM EDT) Avis Garcias MD - 12/20/2024 4:00 PM EDT Avis Talley MD 12/20/2024 6:08 PM Medium Inj/Asp: L ulnocarpal Details: 25 G needle, dorsal approach Medications: 40 mg triamcinolone acetonide 40 mg/mL Site was prepped in standard fashion using betadine and alcohol, sterile technique was used to perform the injection into the wrist, the 6 ulnar portal was utilized, the patient tolerated the procedure well and a band-aid dressing was applied Informed Consent: Site: Left ulnar wrist Laterality: Right Relevant images/test results available and reviewed: yes Health status cleared: Yes Procedure/treatment, purpose, treatment alternatives, risks/potential complications and benefits explained: yes Risk/complications/benefits details: Risks and benefits of corticosteroid injection were discussed, including risk of pain, bleeding, infection, tissue attenuation, tendon rupture, changes in skin color, and injury to surrounding structures such as arteries, veins and nerves. We also discussed the patient may develop worsening pain for a few days before having improvement in their symptoms. Patient questions answered: yes Patient agrees, verbalizes understanding, and wants to proceed: yes Consent given by: Patient Informed consent discussion completed by Physician/MARIA R with patient: Verbal Pre-procedure timeout performed: yes us Avis Talley MD IN CLINIC/BEDSIDE ORDERABLES Final Result * MR Wrist wo Contrast Left (12/05/2024 5:59 PM EDT) Anatomical Region Laterality Modality Upper Extremities, Wrist Left Magneti c Resonance 12/06/2024 11:0 7 AM EDT Impressions 12/06/2024 1:07 PM EDT Degenerative central perforation at the articular disc of the TFCC with small fluid in the distal radioulnar joint. Intact peripheral and foveal TFCC attachments at the ulnar styloid. Thickening and high signal of the dorsal and volar extrinsic wrist ligaments which may reflect capsulitis or sequelae of old injury. Extensor carpi ulnaris tendinosis without tear. 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 -------- FINAL REPORT -------- Dictated By: MARKOS FAGAN Dictated Date: 12/06/2024 11:07 ET Assigned Physician: MARKOS FAGAN Reviewed and Electronically Signed By: MARKOS FAGAN Signed Date: 12/06/2024 13:07 ET Workstation ID: [id number] Transcribed By: Self Edit Transcribed Date: 12/06/2024 11:08 ET Narrative 12/06/2024 1:07 PM EDT PROCEDURE: Left wrist MRI INDICATION: Pain TECHNIQUE: Multiplanar, multisequence MRI of the left wrist Without contrast. COMPARISON: None FINDINGS: No fracture or suspicious marrow replacing lesion. Severe cartilage loss with subchondral cystic changes and peripheral osteophyte formation seen at the 1st CMC articulation. No joint effusions. The scapholunate and lunatotriquetral ligaments are intact. There is a degenerative central perforation at the articular disc of the TFCC with small fluid in the distal radioulnar joint. The peripheral and foveal attachments of the TFCC are intact at the ulnar styloid. The dorsal and volar extrinsic wrist ligaments are intact. There is thickening and high signal of the extrinsic wrist ligaments. There is extensor carpi ulnaris tendinosis without tear. Extensor tendons are otherwise intact. Flexor tendons are intact. Carpal tunnel morphology is normal. Median and ulnar nerves are normal in signal and morphology. Muscle bulk is preserved. No mass or fluid collection.. Procedure Note Markos Fagan MD - 12/06/2024 PROCEDURE: Left wrist MRI INDICATION: Pain TECHNIQUE: Multiplanar, multisequence MRI of the left wrist Withoutcontrast. COMPARISON: None FINDINGS: No fracture or suspicious marrow replacing lesion. Severe cartilage loss with subchondral cystic changes and peripheralosteophyte formation seen at the 1st CMC articulation. No jointeffusions. The scapholunate and lunatotriquetral ligaments are intact. There is a degenerative central perforation at the articular disc of theTFCC with small fluid in the distal radioulnar joint. The peripheral andfoveal attachments of the TFCC are intact at the ulnar styloid. The dorsal and volar extrinsic wrist ligaments are intact. There isthickening and high signal of the extrinsic wrist ligaments. There is extensor carpi ulnaris tendinosis without tear. Extensor tendonsare otherwise intact. Flexor tendons are intact. Carpal tunnel morphology is normal. Median and ulnar nerves are normal insignal and morphology. Muscle bulk is preserved. No mass or fluid collection.. IMPRESSION: Degenerative central perforation at the articular disc of the TFCC withsmall fluid in the distal radioulnar joint. Intact peripheral and fovealTFCC attachments at the ulnar styloid. Thickening and high signal of the dorsal and volar extrinsic wristligaments which may reflect capsulitis or sequelae of old injury. Extensor carpi ulnaris tendinosis without tear. 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 -------- FINAL REPORT -------- Dictated By: MARKOS FAGAN Dictated Date: 12/06/2024 11:07 ET Assigned Physician: MARKOS FAGAN Reviewed and Electronically Signed By: MARKOS FAGAN Signed Date: 12/06/2024 13:07 ET Workstation ID: [id number] Transcribed By: Self Edit Transcribed Date: 12/06/2024 11:08 ET Avis Talley MD IMG MRI PROCEDURES Final Resu lt * (ABNORMAL) Culture genital (11/15/2024 4:01 PM EDT) Culture, Genital Shonna albicans/du bliniensis( A) 11/18/2024 10:48 AM EDT [facility] Comment: The organism value for this result has been updated. These results have been appended to the previously preliminary verified report. Edited result: Previously reported as Yeast on 11/17/2024 at 1007 EDT. Swab Vaginal structure / Unknown Non-blood Collection / Unknown 11/15/2024 4:01 PM EDT 11/15/2024 4:01 PM EDT Olivia Donohue MD LAB MICROBIOLOGY - GENERAL ORDERABLES Final Result [facility] [address] [place] [address], [place] [phone] * Microalbumin creatinine urine ratio (11/04/2024 9:28 AM EDT) Creatinine, Urine 120.0 mg/dL LAB CHEMISTRY METHOD 11/04/2024 4:35 PM EDT [facility] Microalb, Ur 10.6 0.0 - 29.0 mg/L LAB CHEMISTRY METHOD 11/04/2024 4:35 PM EDT [facility] Microalb/Creat Ratio 9 <30 mg/g creat LAB CHEMISTRY METHOD 11/04/2024 4:35 PM T [facility] Urine Urine specimen obtained by clean catch procedure / Unknown Non-blood Collection / Unknown 11/04/2024 9:28 AM EDT 11/04/2024 9:28 AM EDT us Jacob Lo MD LAB URINE ORDERABLES Final Resu lt [facility] [address] [place] [address], [place] [phone] * Lipid panel with reflex to direct LDL (11/04/2024 9:18 AM EDT) Cholesterol 130 0 - 200 mg/dL LAB CHEMISTRY METHOD 11/04/2024 3:13 PM [facility] Triglycerides 129 0 - 150 mg/dL LAB CHEMISTRY METHOD 11/04/2024 3:13 PM [facility] HDL 47 >=40 mg/dL LAB CHEMISTRY METHOD 11/04/2024 3:13 PM [facility] LDL Calculated 57 0 - 100 mg/dL LAB CHEMISTRY METHOD 11/04/2024 3:13 PM [facility] VLDL Cholesterol Germain 25.8 mg/dL LAB CHEMISTRY METHOD 11/04/2024 3:13 PM [facility] Non HDL Chol. (LDL+VLDL) 83 <145 mg/dL LAB CHEMISTRY METHOD 11/04/2024 3:13 PM [facility] Chol/HDL Ratio 2.8 0.0 - 4.4 LAB CHEMISTRY METHOD 11/04/2024 3:13 PM [facility] Blood Venous blood specimen / Unknown Venipuncture / Unknown 11/04/2024 9:18 AM EDT 11/04/2024 9:18 AM EDT us Jacob Lo MD LAB BLOOD ORDERABLES Final Resu lt Performing Organization Address [facility]/ZIP Co de Phone Number [facility] [address] [place] [address], [place] [phone] * (ABNORMAL) Hemoglobin A1c (11/04/2024 9:18 AM EDT) Pathologist [facility] Hemoglobin A1C 7.5(H) <6.5 % LAB CHEMISTRY METHOD 11/04/2024 1:47 PM EDT [facility] Mean Bld Glu Estim. 169 mg/dL LAB CHEMISTRY METHOD 11/04/2024 1:47 PM EDT [facility] Blood Venous blood specimen / Unknown Venipuncture / Unknown 11/04/2024 9:18 AM EDT 11/04/2024 9:18 AM EDT us Jacob Lo MD LAB BLOOD ORDERABLES Final Resu lt Performing Organization Address City/[facility]/ZIP Co de Phone Number [facility] [address] [place] [address], [place] [phone] * Comprehensive metabolic panel (11/04/2024 9:18 AM EDT) Sodium 140 133 - 145 mmol/L LAB CHEMISTRY METHOD 11/04/2024 3:13 PM EDT [facility] Potassium 5.2 3.5 - 5.5 mmol/L LAB CHEMISTRY METHOD 11/04/2024 3:13 PM EDT [facility] Chloride 107 96 - 110 mmol/L LAB CHEMISTRY METHOD 11/04/2024 3:13 PM EDT [facility] CO2 28 21 - 32 mmol/L LAB CHEMISTRY METHOD 11/04/2024 3:13 PM EDT [facility] Anion Gap 5 3 - 11 LAB CHEMISTRY METHOD 11/04/2024 3:13 PM [facility] Glucose 98 70 - 100 mg/dL LAB CHEMISTRY METHOD 11/04/2024 3:13 PM [facility] BUN 15 5 - 25 mg/dL LAB CHEMISTRY METHOD 11/04/2024 3:13 PM [facility] Creatinine 0.65 0.50 - 1.10 mg/dL LAB CHEMISTRY METHOD 11/04/2024 3:13 PM [facility] eGFR 102 >=60 mL/min/1. 73m2 LAB CHEMISTRY METHOD 11/04/2024 3:13 PM [facility] Comment:Calculation based on the Chronic Kidney Disease Epidemiology Collaboration (CKD-EPI) equation refit without adjustment for race. BUN/Creatinine Ratio 23.1 LAB CHEMISTRY METHOD 11/04/2024 3:13 PM [facility] Calcium 9.1 8.5 - 10.5 mg/dL LAB CHEMISTRY METHOD 11/04/2024 3:13 PM [facility] AST (SGOT) 31 10 - 42 unit/L LAB CHEMISTRY METHOD 11/04/2024 3:13 PM [facility] ALT (SGPT) 41 10 - 60 unit/L LAB CHEMISTRY METHOD 11/04/2024 3:13 PM [facility] Alkaline Phosphatase 92 42 - 121 unit/L LAB CHEMISTRY METHOD 11/04/2024 3:13 PM [facility] Total Protein 7.3 6.0 - 8.0 g/dL LAB CHEMISTRY METHOD 11/04/2024 3:13 PM [facility] Albumin 3.7 3.2 - 5.0 g/dL LAB CHEMISTRY METHOD 11/04/2024 3:13 PM [facility] Total Bilirubin 0.6 0.0 - 1.4 mg/dL LAB CHEMISTRY METHOD 11/04/2024 3:13 PM [facility] Blood Venous blood specimen / Unknown Venipuncture / Unknown 11/04/2024 9:18 AM EDT 11/04/2024 9:18 AM EDT Jacob Lo MD LAB BLOOD ORDERABLES Final Resu lt [facility] [address] [place] [address], [place] [phone] * HPV with reflex genotype (11/04/2024 9:00 AM EDT) HPV Negative Negative LAB MICROBIOLOGY METHOD 11/07/2024 3:10 PM EDT [facility] Brushing/Spatula Cervix uteri structure / Unknown 11/04/2024 9:00 AM EDT 11/07/2024 6:35 AM EDT Krystal Robles CNM LAB MOLECULAR DIAGNOSTICS O RDERABLES Final Result [facility] [address] [place] [address], [place] [phone] * Pap smear (11/04/2024 9:00 AM EDT) Interpretation Negative for intraepithelial lesion or malignancy 11/08/2024 1:29 PM EDT [facility] General Categorization Negative 11/08/2024 1:29 PM EDT [facility] Other Findings Shift in patsy suggestive of bacterial vaginosis 11/08/2024 1:29 PM EDT [facility] Specimen Adequacy Satisfactory for evaluation, endocervical/baum sformation zone component present 11/08/2024 1:29 PM EDT [facility] Pap Methodology Liquid Based Pap Test 11/08/2024 1:29 PM EDT [facility] Disclaimer The Pap test is a screening test which carries an inherent false negative rate. These test results should be correlated with the patient's clinical findings and history. This Pap test was processed using an automated screening system. Technical cytopathology services provided by [facility], at [address] [place] [address] (CLIA # [id number]/Cynthia Rob MD, [employer].) 11/08/2024 1:29 PM EDT [facility] Console Pap Interpretation Reported 11/08/2024 1:29 PM EDT [facility] Brushing/Spatula Vaginal structure / Unknown 11/04/2024 9:00 AM EDT 11/04/2024 9:00 AM EDT Krystal Robles [facility] CYTOLOGY ORDERABLES Fin al Result Performing Organization Address City/State/[facility] Co de Phone Number [facility] [address] [place] [address], * SCREENING MAMMOGRAPHY BI 2-VIEW BREAST INC CAD (04/06/2023 6:47 PM EDT) Anatomical Region Laterality Modality Radiographic Sepideh ging 03/31/2022 7:27 PM EDT Narrative 04/07/2023 9:35 AM EDT This is a summary report. The complete report is available in the patient's medical record. If you cannot access the medical record, please contact the sending organization for a detailed fax or copy. Full field digital screening tomosynthesis mammography, reviewed with CAD and compared to previous mammograms dating back to 03/05/2019 and most recent of 03/31/2022. There is bilateral parenchymal scarring from remote reduction mammoplasty, unchanged. The breasts are composed of fatty and fibroglandular tissue. No suspicious mass, architectural distortion or suspicious calcifications are identified. There are coarse calcifications from fat necrosis bilaterally, left greater than right. IMPRESSION: : No mammographic evidence of malignancy. BIRADS 2-benign 5 year breast cancer risk assessment 1.1 % Lifetime breast cancer risk assessment 7.1 % Breast cancer risk category Low (<15%) Procedure Note Lizbeth Davidson MD - 07/14/2023 This is a summary report. The complete report is available in thepatient's medical record. If you cannot access the medical record, pleasecontact the sending organization for a detailed fax or copy. Full field digital screening tomosynthesis mammography, reviewed with CADand compared to previous mammograms dating back to 03/05/2019 and mostrecent of 03/31/2022. There is bilateral parenchymal scarring from remotereduction mammoplasty, unchanged. The breasts are composed of fatty andfibroglandular tissue. No suspicious mass, architectural distortion orsuspicious calcifications are identified. There are coarse calcificationsfrom fat necrosis bilaterally, left greater than right. IMPRESSION: : No mammographic evidence of malignancy. BIRADS 2-benign 5 year breast cancer risk assessment 1.1 % Lifetime breast cancer risk assessment 7.1 % Breast cancer risk category Low (<15%) Result [facility] Jacob Lo MD IMG XR PROCEDURES Final Result * Colonoscopy (03/19/2021) Colonoscopy no interpretation , abstracted Anatomical Region Laterality Modality Other Result [facility] Historical Provider HEALTH MAINTENANCE Final Result * Hepatitis C Screening (03/09/2014) Hepatitis C Screening abstracted Historical Provider HEALTH MAINTENANCE Final Result from Last 3 Months or Most Recently Relevant to Health Maintenance Insurance * Guarantor: Connor Hargrove Account Type Relation to Patient Date of Phone Billing Address Personal/Family Self 1965 [phone] (Work) [address] [place] [address] [facility] [place] [address] Care Teams [employer] Relationship Specialty Start Date End Date Jacob Lo MD [address] [place] [id number] PCP - General Internal Medicine 05/18/24
[2025-01-12 14:36] VITALS: BP 140/58; PULSE 79; RESP 14; TEMP 36.3; O2SAT 96
[2025-01-12 15:42] VITALS: BP 140/58; PULSE 79; RESP 14; TEMP 36.3; O2SAT 96
== END 2025-01-12 15:43 | disposition home or self-care (01) ==
PROVIDERS: Emergency Provider Emergency Medicine; PCP Internal Medicine
DX: S00.31XA Abrasion of nose, initial encounter (principal); S60.811A Abrasion of right wrist, initial encounter; S80.211A Abrasion, right knee, initial encounter; E11.9 Type 2 diabetes mellitus without complications; W01.198A Fall on same level from slipping, tripping and stumbling with subsequent striking against other object, initial encounter; Y93.89 Activity, other specified; Y92.481 Parking lot as the place of occurrence of the external cause; Y99.8 Other external cause status; Z79.4 Long term (current) use of insulin; Z96.652 Presence of left artificial knee joint
CPT/HCPCS: 70450; 70486; 72125; 99284

== ENCOUNTER → 2025-01-12 12:10 | Outpatient (BNV) | payer OTHER, SELFPAY | PROVIDERS: Emergency Provider Emergency Medicine; PCP Internal Medicine; Visit Provider Radiology Diagnostic Radiology | DX: S09.93XA Unspecified injury of face, initial encounter (principal); M47.812 Spondylosis without myelopathy or radiculopathy, cervical region; M48.02 Spinal stenosis, cervical region; W19.XXXA Unspecified fall, initial encounter | CPT/HCPCS: 70450; 70486; 72125 ==